=== PATIENT | male | born 1955 | race Hispanic/Latino ===

== ENCOUNTER 2022-06-23 15:19 | Inpatient (IN) | payer MEDICARE, OTHER ==
[~2022-06-23] VITALS: Ht 162.6 cm; Wt 39.3 kg
[2022-06-23 15:53] LABS: BASOPHILS % (AUTO) 0.2 % (0.0-5.0); CREATININE 1.1 mg/dL (0.5-1.5); EOSINOPHILS % (AUTO) 0.2 % (0.0-8.0); HEMATOCRIT 47.9 % (42-54); LYMPHOCYTES % (AUTO) 10.5 % (21.0-51.0); MEAN CORPUSCULAR HEMOGLOBIN 30.9 pg (27.0-33.0); MEAN CORPUSCULAR HGB CONC 34.7 g/dL (32.0-36.0); MONOCYTES % (AUTO) 6.1 % (3.0-13.0); NEUTROPHILS % (AUTO) 82.5 % (40.0-77.0); PLATELET COUNT (AUTO) 243 K/uL (130-400); POTASSIUM 3.7 mmol/L (3.5-5.1); RED BLOOD CELL COUNT(AUTO) 5.38 MIL/uL (4.50-6.20); RED CELL DISTRIBUTION WIDTH 12.9 % (11.0-15.5); WHITE BLOOD COUNT (AUTO) 12.1 K/uL (4.8-10.8)
[2022-06-23 15:58] LABS: ALBUMIN 3.6 g/dL (3.5-5.0); TOTAL PROTEIN, SERUM 7.7 g/dL (6.0-8.3)
[2022-06-23 16:28] LABS: INR 0.94 (0.85-1.15); PROTHROMBIN TIME 10.3 SEC (9.6-11.6)
[2022-06-23 16:29] LABS: PARTIAL THROMBOPLASTIN TIME 27.8 SEC (26.3-35.5)
[2022-06-23] MEDS ORDERED: ASPIRIN 81MG CHEW TAB PO ONE (16:30)
[2022-06-23 16:38] LABS: APPEARANCE,URINE CLEAR (CLEAR); BILIRUBIN,URINE NEGATIVE (NEGATIVE); COLOR,URINE LIGHT-YELLOW (YELLOW); GLUCOSE, URINE (UA) 30 mg/dL (NEGATIVE); KETONES,URINE NEGATIVE (NEGATIVE); LEUKOCYTE ESTERASE ,URINE NEGATIVE Leu/uL (NEGATIVE); NITRATE,URINE NEGATIVE (NEGATIVE); OCCULT BLOOD,URINE LARGE (NEGATIVE); PROTEIN,URINE NEGATIVE (NEGATIVE); UROBILINOGEN,URINE 0.2 mg/dL (0.2-1.0)
[2022-06-23] MEDS ORDERED: HEPARIN 25,000 UNITS/250ML D5W 250 ML IV ONE (16:38)
[2022-06-23] MEDS ORDERED: HEPARIN 5,000 UNIT VIAL ONE (16:38)
[2022-06-23 16:41] LABS: MUCUS,URINE RARE LPF (None Seen); RBC,URINE 0-1 /HPF (0-1); WBC,URINE 0-1 /HPF (0-1)
[2022-06-23] MEDS: HEPARIN 25,000 UNITS/250ML D5W 250 ML IV SCH (16:45)
[2022-06-23] MEDS ORDERED: CLOPIDOGREL 300MG TAB PO SCH (17:00)
[2022-06-23] MEDS ORDERED: MAG/ALUM/SIMETH 30 ML UDCUP PO PRN (17:00)
[2022-06-23] MEDS ORDERED: NITROGLYCERIN 0.4 MG SL TAB SL PRN (17:00)
[2022-06-23] MEDS ORDERED: LIDOCAINE HCL-MPF 1% 2ML VIAL IV PRN (17:00)
[2022-06-23] MEDS ORDERED: MAGNESIUM 2GM PREMIX 50ML 50 ML IV PRN (17:00)
[2022-06-23] MEDS ORDERED: ONDANSETRON 4MG INJ IV PRN (17:00)
[2022-06-23] MEDS ORDERED: GUAIFENESIN-DM 200/20 MG 10 ML PO PRN (17:00)
[2022-06-23] MEDS ORDERED: LACTULOSE 20 GM/30 ML UDCUP PO PRN (17:00)
[2022-06-23] MEDS ORDERED: DiphenhydrAMINE HCL 50 MG/ML VIAL IV PRN (17:00)
[2022-06-23] MEDS ORDERED: DIPHENHYDRAMINE HCL 25 MG CAPSULE PO PRN (17:00)
[2022-06-23] MEDS: ATORVASTATIN 40 MG TABLET PO SCH ×2 (17:13→19:54)
[2022-06-23] MEDS ORDERED: 0.9% NACL 500ML IV.SOLN 500 ML IV SCH (18:00)
[2022-06-23 19:15] VITALS: BP 130/61
[2022-06-23] MEDS: FAMOTIDINE 20MG TAB PO SCH (19:53)
[2022-06-23] MEDS: FAMOTIDINE 20MG VIAL IV SCH (19:54)
[2022-06-23 23:29] LABS: INR 0.96 (0.85-1.15); PROTHROMBIN TIME 10.5 SEC (9.6-11.6)
[2022-06-23 23:30] LABS: PARTIAL THROMBOPLASTIN TIME 87.7 SEC (26.3-35.5)
[2022-06-24] VITALS (15 sets, daily range): BP systolic 109–138; BP diastolic 53–95
[2022-06-24 06:42] LABS: CREATININE 0.9 mg/dL (0.5-1.5); MAGNESIUM 1.8 mg/dL (1.80-2.40); PHOSPHORUS 3.3 mg/dL (2.5-4.9); POTASSIUM 3.7 mmol/L (3.5-5.1)
[2022-06-24 06:50] LABS: BASOPHILS % (AUTO) 0.3 % (0.0-5.0); EOSINOPHILS % (AUTO) 0.7 % (0.0-8.0); HEMATOCRIT 46.4 % (42-54); LYMPHOCYTES % (AUTO) 27.1 % (21.0-51.0); MEAN CORPUSCULAR HEMOGLOBIN 30.6 pg (27.0-33.0); MEAN CORPUSCULAR HGB CONC 34.1 g/dL (32.0-36.0); MEAN CORPUSCULAR VOLUME 89.9 fL (79-99); MONOCYTES % (AUTO) 10.5 % (3.0-13.0); NEUTROPHILS % (AUTO) 61.1 % (40.0-77.0); PLATELET COUNT (AUTO) 217 K/uL (130-400); RED BLOOD CELL COUNT(AUTO) 5.16 MIL/uL (4.50-6.20); RED CELL DISTRIBUTION WIDTH 12.8 % (11.0-15.5); WHITE BLOOD COUNT (AUTO) 13.6 K/uL (4.8-10.8)
[2022-06-24] MEDS: ASPIRIN 81 MG EC TAB PO SCH (09:00)
[2022-06-24] MEDS: CLOPIDOGREL 75MG TAB PO SCH ×2 (09:00→11:44)
[2022-06-24] MEDS: FAMOTIDINE 20MG TAB PO SCH ×2 (09:00→20:25)
[2022-06-24] MEDS: FAMOTIDINE 20MG VIAL IV SCH ×2 (09:40→20:25)
[2022-06-24] MEDS: HEPARIN 25,000 UNITS/250ML D5W 250 ML IV SCH (11:27)
[2022-06-24] MEDS: KCL 20 MEQ ERTAB PO PRN (11:47)
[2022-06-24] MEDS ORDERED: LIDOCAINE HCL 1% 20 ML VIAL ONE (12:33)
[2022-06-24] MEDS ORDERED: NITROGLYCERIN 50MG VIAL ONE (12:34)
[2022-06-24] MEDS ORDERED: MIDAZOLAM HCL 1 MG/ML 2ML VIAL ONE (12:34)
[2022-06-24] MEDS ORDERED: HEPARIN 10,000 UNIT/10ML (1,000 UNIT/ML) VIAL ONE (12:34)
[2022-06-24] MEDS ORDERED: FENTANYL CITRATE PF 50 MCG/1 ML 2ML VIAL ONE (12:40)
[2022-06-24] MEDS ORDERED: ATROPINE 1MG SYG IVP ONE (13:07)
[2022-06-24] MEDS ORDERED: DOPAMINE HCL 400 MG/D5%-WATER 0 ML IV ONE (13:09)
[2022-06-24] MEDS ORDERED: SODIUM BICARB 50MEQ 50ML VIAL 0 ML ONE (13:50)
[2022-06-24] MEDS ORDERED: WATER IVP SCH (14:30)
[2022-06-24] MEDS ORDERED: DEXTROSE 5% IVP SCH (14:30)
[2022-06-24] MEDS ORDERED: SYRING IVP SCH (14:30)
[2022-06-24] MEDS ORDERED: SODIUM BICARB 8.4% IVP SCH (14:30)
[2022-06-24 17:35] LABS: HEMATOCRIT 45.7 % (42-54); MEAN CORPUSCULAR HEMOGLOBIN 30.9 pg (27.0-33.0); MEAN CORPUSCULAR HGB CONC 34.4 g/dL (32.0-36.0); RED BLOOD CELL COUNT(AUTO) 5.08 MIL/uL (4.50-6.20); RED CELL DISTRIBUTION WIDTH 12.7 % (11.0-15.5); WHITE BLOOD COUNT (AUTO) 11.9 K/uL (4.8-10.8)
[2022-06-24 17:41] LABS: ABG BASE EXCESS 1.7 mmol/L (-2.0-3.0); ABG HCO3 25.7 mmol/L (21.0-28.0); ABG OXYGEN SATURATION 95.6 % (95.0-99.0); ABG PCO2 39 mmHg (35-48)
[2022-06-24 18:11] LABS: CREATININE 0.9 mg/dL (0.5-1.5); POTASSIUM 3.9 mmol/L (3.5-5.1)
[2022-06-24] MEDS: ATORVASTATIN 40 MG TABLET PO SCH (20:25)
[2022-06-25] VITALS (35 sets, daily range): BP systolic 15–147; BP diastolic 51–101
[2022-06-25 01:31] LABS: APPEARANCE,URINE TURBID (CLEAR); BILIRUBIN,URINE NEGATIVE (NEGATIVE); COLOR,URINE DARK-BROWN (YELLOW); GLUCOSE, URINE (UA) NEGATIVE (NEGATIVE); KETONES,URINE NEGATIVE (NEGATIVE); LEUKOCYTE ESTERASE ,URINE NEGATIVE Leu/uL (NEGATIVE); NITRATE,URINE NEGATIVE (NEGATIVE); OCCULT BLOOD,URINE LARGE (NEGATIVE); PROTEIN,URINE 70 mg/dL (NEGATIVE); UROBILINOGEN,URINE 0.2 mg/dL (0.2-1.0)
[2022-06-25 01:33] LABS: BASOPHILS % (AUTO) 0.3 % (0.0-5.0); EOSINOPHILS % (AUTO) 0.7 % (0.0-8.0); HEMATOCRIT 46.1 % (42-54); LYMPHOCYTES % (AUTO) 24.3 % (21.0-51.0); MEAN CORPUSCULAR HEMOGLOBIN 31.3 pg (27.0-33.0); MEAN CORPUSCULAR HGB CONC 34.7 g/dL (32.0-36.0); MONOCYTES % (AUTO) 12.1 % (3.0-13.0); NEUTROPHILS % (AUTO) 62.2 % (40.0-77.0); PLATELET COUNT (AUTO) 213 K/uL (130-400); RED BLOOD CELL COUNT(AUTO) 5.12 MIL/uL (4.50-6.20); RED CELL DISTRIBUTION WIDTH 12.8 % (11.0-15.5); WHITE BLOOD COUNT (AUTO) 13.7 K/uL (4.8-10.8)
[2022-06-25 01:55] LABS: HEMOGLOBIN A1C 6.2 % (4.0-6.0)
[2022-06-25 02:03] LABS: B-TYPE NATRIURETIC PEPTIDE 293 pg/mL (0-100)
[2022-06-25 02:06] LABS: MYOGLOBIN 93 ng/mL (10-92)
[2022-06-25 02:27] LABS: CREATINE KINASE, TOTAL 1618 U/L (21-232)
[2022-06-25] MEDS ORDERED: CEFAZOLIN SODIUM 1 GM VIAL ONE (05:18)
[2022-06-25] MEDS ORDERED: PAPAVERINE HCL 30 MG/ML 2ML VIAL ONE (05:19)
[2022-06-25 05:46] LABS: CREATININE 0.9 mg/dL (0.5-1.5); POTASSIUM 4.1 mmol/L (3.5-5.1)
[2022-06-25 05:50] LABS: ALBUMIN 3.2 g/dL (3.5-5.0); TOTAL PROTEIN, SERUM 7.1 g/dL (6.0-8.3)
[2022-06-25 05:54] LABS: INR 0.94 (0.85-1.15); PROTHROMBIN TIME 10.3 SEC (9.6-11.6)
[2022-06-25 05:55] LABS: PARTIAL THROMBOPLASTIN TIME 27.3 SEC (26.3-35.5)
[2022-06-25] MEDS ORDERED: NOREPINEPHRINE BITARTRATE 8 MG in 0.9% NACL 250ML 250 ML IV PRN (07:00)
[2022-06-25] MEDS ORDERED: EPINEPHRINE PF 1MG (1:1,000) 10 MG in 0.9% NACL 250ML 240 ML IV PRN ×2 (07:00→11:00)
[2022-06-25] MEDS ORDERED: AMINOCAPROIC ACID 5,000MG VIAL 15,000 MG in 0.9% NACL 500ML IV.SOLN 420 ML IV PRN (07:00)
[2022-06-25] MEDS ORDERED: METOPROLOL TARTRATE 25 MG TAB ONE (07:28)
[2022-06-25] MEDS ORDERED: HEPARIN 10,000 UNIT/10ML (1,000 UNIT/ML) VIAL ONE ×2 (07:59→08:31)
[2022-06-25] MEDS ORDERED: NITROGLYCERIN 50MG/D5W 250ML 1 BOT ONE (08:18)
[2022-06-25] MEDS ORDERED: EPINEPHRINE PF 1MG (1:1,000) 1 MG/ML AMP ONE (08:31)
[2022-06-25] MEDS ORDERED: FENTANYL CITRATE PF 50 MCG/1 ML 20ML VIAL IJ ONE (08:31)
[2022-06-25] MEDS ORDERED: PROTAMINE SULFATE 10 MG/ML 25ML VIAL IV ONE (08:31)
[2022-06-25] MEDS ORDERED: PROPOFOL 10 MG/ML 20ML VIAL IV ONE (08:31)
[2022-06-25] MEDS ORDERED: AMINOCAPROIC ACID 5,000MG VIAL ONE (08:31)
[2022-06-25] MEDS ORDERED: ESMOLOL HCL 10 MG/ML 10 ML VIAL ONE ×2 (08:31→09:08)
[2022-06-25] MEDS ORDERED: NOREPINEPHRINE BITARTRATE 1 MG/1 ML ML IV ONE ×2 (08:31→11:43)
[2022-06-25] MEDS ORDERED: LIDOCAINE PF 100MG/5ML (2%) SYRINGE 5ML ONE ×2 (08:31→08:33)
[2022-06-25] MEDS ORDERED: ROCURONIUM 10MG/1ML SYR 10 MG/ML ML ONE ×2 (08:32→10:45)
[2022-06-25] MEDS ORDERED: MIDAZOLAM HCL 1 MG/ML 2ML VIAL ONE (08:32)
[2022-06-25] MEDS ORDERED: ETOMIDATE 20MG VIAL ONE (08:33)
[2022-06-25] MEDS: ASPIRIN 81 MG EC TAB PO SCH (09:00)
[2022-06-25] MEDS ORDERED: METOPROLOL TARTRATE 25 MG TAB PO SCH (09:00)
[2022-06-25] MEDS ORDERED: VASOPRESSIN 20 UNITS/ML 1ML VIAL ONE (09:02)
[2022-06-25] MEDS ORDERED: AMIODARONE 150MG VIAL ONE (09:02)
[2022-06-25 09:28] LABS: ABG BASE EXCESS -3.8 mmol/L (-2.0-3.0); ABG HCO3 22.2 mmol/L (21.0-28.0); ABG OXYGEN SATURATION 99.9 % (95.0-99.0); ABG PCO2 44 mmHg (35-48)
[2022-06-25] MEDS ORDERED: SODIUM BICARB 50MEQ 50ML VIAL 200 ML ONE (09:38)
[2022-06-25] MEDS ORDERED: CEFAZOLIN SODIUM 1 GM VIAL IVP ONE ×2 (10:00)
[2022-06-25] MEDS ORDERED: PAPAVERINE HCL 30 MG/ML 2ML VIAL IRRIG ONE ×2 (10:00)
[2022-06-25] MEDS ORDERED: SODIUM BICARB 50MEQ 50ML VIAL 250 ML ONE (10:04)
[2022-06-25 10:24] LABS: ABG BASE EXCESS 5.8 mmol/L (-2.0-3.0); ABG HCO3 29.7 mmol/L (21.0-28.0); ABG OXYGEN SATURATION 99.8 % (95.0-99.0); ABG PCO2 40 mmHg (35-48)
[2022-06-25 10:59] LABS: ABG BASE EXCESS 0.8 mmol/L (-2.0-3.0); ABG HCO3 23.7 mmol/L (21.0-28.0); ABG OXYGEN SATURATION 99.6 % (95.0-99.0); ABG PCO2 33 mmHg (35-48)
[2022-06-25] MEDS ORDERED: GLUCAGON 1MG KIT 1 MG ML IM PRN (11:00)
[2022-06-25] MEDS ORDERED: 0.9%NACL 10ML VIAL IVP PRN (11:00)
[2022-06-25] MEDS ORDERED: AMINOCAPROIC ACID 5,000MG VIAL 15,000 MG in 0.9% NACL 250ML 250 ML IV SCH (11:00)
[2022-06-25] MEDS ORDERED: CEFAZOLIN SODIUM 1 GM VIAL IVP SCH (11:00)
[2022-06-25] MEDS ORDERED: PROPOFOL 1000 MG/100 ML 100 ML IV PRN (11:00)
[2022-06-25] MEDS ORDERED: 0.9%NACL 1000ML 1,000 ML IV SCH (11:00)
[2022-06-25] MEDS ORDERED: NOREPINEPHRIN 4MG/NS 250ML 250 ML IV PRN (11:00)
[2022-06-25] MEDS ORDERED: INSULIN REGULAR, HUMAN 3ML 100 UNIT in 0.9%NACL 100ML 99 ML IV SCH ×2 (11:00)
[2022-06-25] MEDS ORDERED: ONDANSETRON 4MG INJ IV PRN (11:00)
[2022-06-25] MEDS ORDERED: MORPHINE 2 MG SYG IV PRN (11:00)
[2022-06-25] MEDS ORDERED: POTASSIUM PHOS 15 mMOL+NS250ML 250 ML IV PRN (11:00)
[2022-06-25] MEDS ORDERED: 0.9% NACL 500ML IV.SOLN 500 ML IV SCH (11:00)
[2022-06-25] MEDS ORDERED: ACETAMINOPHEN 325 MG TAB PO PRN (11:00)
[2022-06-25] MEDS ORDERED: DEXTROSE 50%-WATER 50 ML DISP.SYRIN IV PRN (11:00)
[2022-06-25] MEDS ORDERED: NITROGLYCERIN 50MG/D5W 250ML 250 BOT IV SCH (11:00)
[2022-06-25] MEDS ORDERED: POTASSIUM CHLORIDE 20MEQ/100ML 100 ML IV PRN (11:00)
[2022-06-25 11:16] LABS: ABG BASE EXCESS -0.6 mmol/L (-2.0-3.0); ABG HCO3 23.6 mmol/L (21.0-28.0); ABG OXYGEN SATURATION 99.6 % (95.0-99.0); ABG PCO2 37 mmHg (35-48)
[2022-06-25] MEDS ORDERED: ASPIRIN 81MG CHEW TAB NG ONE (12:00)
[2022-06-25 12:06] LABS: ABG BASE EXCESS -4.3 mmol/L (-2.0-3.0); ABG HCO3 19.6 mmol/L (21.0-28.0); ABG OXYGEN SATURATION 99.2 % (95.0-99.0); ABG PCO2 32 mmHg (35-48)
[2022-06-25 12:59] LABS: ABG BASE EXCESS -1.1 mmol/L (-2.0-3.0); ABG HCO3 22.5 mmol/L (21.0-28.0); ABG OXYGEN SATURATION 96.1 % (95.0-99.0); ABG PCO2 33 mmHg (35-48)
[2022-06-25 13:02] LABS: HEMATOCRIT 24.8 % (42-54); MEAN CORPUSCULAR HEMOGLOBIN 31.4 pg (27.0-33.0); MEAN CORPUSCULAR HGB CONC 34.7 g/dL (32.0-36.0); MEAN CORPUSCULAR VOLUME 90.5 fL (79-99); RED BLOOD CELL COUNT(AUTO) 2.74 MIL/uL (4.50-6.20); RED CELL DISTRIBUTION WIDTH 12.8 % (11.0-15.5); WHITE BLOOD COUNT (AUTO) 28.7 K/uL (4.8-10.8)
[2022-06-25 13:14] LABS: CREATININE 1.1 mg/dL (0.5-1.5); INR 1.32 (0.85-1.15); MAGNESIUM 1.4 mg/dL (1.80-2.40); PHOSPHORUS 3.7 mg/dL (2.5-4.9); POTASSIUM 3.4 mmol/L (3.5-5.1); PROTHROMBIN TIME 14.2 SEC (9.6-11.6)
[2022-06-25 13:15] LABS: PARTIAL THROMBOPLASTIN TIME 30.5 SEC (26.3-35.5)
[2022-06-25 13:32] LABS: ABG BASE EXCESS 2.1 mmol/L (-2.0-3.0); ABG HCO3 26.8 mmol/L (21.0-28.0); ABG OXYGEN SATURATION 96.4 % (95.0-99.0); ABG PCO2 42 mmHg (35-48)
[2022-06-25] MEDS: ALBUMIN (HUMAN) 5% 250 ML IV PRN ×2 (13:32→13:35)
[2022-06-25] MEDS: SODIUM BICARB 50MEQ 50ML VIAL IV PRN ×5 (13:32→17:25)
[2022-06-25] MEDS: MAGNESIUM 2GM PREMIX 50ML 50 ML IV PRN ×2 (13:34→14:50)
[2022-06-25] MEDS: MORPHINE 4 MG SYG IV PRN ×2 (13:34→18:29)
[2022-06-25] MEDS: POTASSIUM CHLORIDE 20MEQ/100ML 100 ML IV PRN ×6 (13:34→21:15)
[2022-06-25 14:37] LABS: ABG BASE EXCESS -0.8 mmol/L (-2.0-3.0); ABG HCO3 23.9 mmol/L (21.0-28.0); ABG OXYGEN SATURATION 98.4 % (95.0-99.0); ABG PCO2 39 mmHg (35-48)
[2022-06-25 14:40] LABS: ABG OXYGEN SATURATION 55.5 % (95.0-99.0); BASE EXCESS,VENOUS BLOOD GAS -1.7 (-2.0-3.0); HCO3,VENOUS BLOOD GAS 23.6 (21.0-28.0); PCO2,VENOUS BLOOD GAS 43 (35-48); PH,VENOUS BLOOD GAS 7.362 (7.350-7.450)
[2022-06-25] MEDS: CALCIUM GLUC 1GM 1 GM in 0.9%NACL 50ML 50 ML IV PRN ×5 (15:03→21:16)
[2022-06-25] MEDS ORDERED: DEXMEDETOMIDINE 400MCG/NS100ML IV ONE ×2 (15:13→22:05)
[2022-06-25 15:22] LABS: ABG HCO3 24.1 mmol/L (21.0-28.0); ABG OXYGEN SATURATION 95.1 % (95.0-99.0); ABG PCO2 41 mmHg (35-48)
[2022-06-25] MEDS: ACETAMINOPHEN 325 MG TAB PO PRN (16:04)
[2022-06-25 16:21] LABS: ABG BASE EXCESS -3.6 mmol/L (-2.0-3.0); ABG HCO3 21.9 mmol/L (21.0-28.0); ABG OXYGEN SATURATION 75.4 % (95.0-99.0); ABG PCO2 42 mmHg (35-48)
[2022-06-25 16:54] LABS: ABG BASE EXCESS 0.9 mmol/L (-2.0-3.0); ABG HCO3 27.6 mmol/L (21.0-28.0); ABG OXYGEN SATURATION 97.4 % (95.0-99.0); ABG PCO2 57 mmHg (35-48)
[2022-06-25] MEDS ORDERED: FENTANYL 2500MCG+NS 250ML IV.SOLN IV SCH (17:00)
[2022-06-25 17:24] LABS: HEMATOCRIT 22.8 % (42-54); MEAN CORPUSCULAR HEMOGLOBIN 31.3 pg (27.0-33.0); MEAN CORPUSCULAR HGB CONC 34.6 g/dL (32.0-36.0); MEAN CORPUSCULAR VOLUME 90.5 fL (79-99); RED BLOOD CELL COUNT(AUTO) 2.52 MIL/uL (4.50-6.20); RED CELL DISTRIBUTION WIDTH 13.2 % (11.0-15.5); WHITE BLOOD COUNT (AUTO) 16.9 K/uL (4.8-10.8)
[2022-06-25 17:29] LABS: INR 1.29 (0.85-1.15); PROTHROMBIN TIME 13.9 SEC (9.6-11.6)
[2022-06-25] MEDS: CEFAZOLIN SODIUM 1 GM VIAL IV SCH (17:29)
[2022-06-25] MEDS ORDERED: IPRATROPIUM 0.5 MG/2.5 ML INH IH ONE ×2 (17:30→17:35)
[2022-06-25] MEDS ORDERED: IPRATROPIUM 0.5 MG/2.5 ML INH IH PRN (17:30)
[2022-06-25 17:31] LABS: CREATININE 1.5 mg/dL (0.5-1.5); PARTIAL THROMBOPLASTIN TIME 33.1 SEC (26.3-35.5)
[2022-06-25 17:34] LABS: MAGNESIUM 2.5 mg/dL (1.80-2.40); TOTAL PROTEIN, SERUM 4.5 g/dL (6.0-8.3)
[2022-06-25 17:59] LABS: ABG BASE EXCESS 0.9 mmol/L (-2.0-3.0); ABG HCO3 24.6 mmol/L (21.0-28.0); ABG OXYGEN SATURATION 98.5 % (95.0-99.0); ABG PCO2 36 mmHg (35-48)
[2022-06-25] MEDS ORDERED: LACTATED RINGERS 1000ML 1,000 ML IV ONE (18:57)
[2022-06-25 19:17] LABS: ABG BASE EXCESS 4.5 mmol/L (-2.0-3.0); ABG HCO3 27.8 mmol/L (21.0-28.0); ABG OXYGEN SATURATION 97.1 % (95.0-99.0); ABG PCO2 36 mmHg (35-48)
[2022-06-25] MEDS: FAMOTIDINE 20MG VIAL IV SCH (20:01)
[2022-06-25] MEDS: ACETAMINOPHEN 650 MG SUPPOSITORY RC PRN ×2 (20:02→22:14)
[2022-06-25] MEDS ORDERED: METOPROLOL TARTRATE 25 MG TAB PO ONE (21:00)
[2022-06-25 21:07] LABS: ABG BASE EXCESS 4.9 mmol/L (-2.0-3.0); ABG HCO3 27.3 mmol/L (21.0-28.0); ABG OXYGEN SATURATION 98.3 % (95.0-99.0); ABG PCO2 32 mmHg (35-48)
[2022-06-25] MEDS: ATORVASTATIN 40 MG TABLET PO SCH (22:14)
[2022-06-25] MEDS: VASOPRESSIN 40 UNITS in 0.9%NACL 50ML 40 ML IV SCH (22:17)
[2022-06-25] MEDS ORDERED: NOREPINEPHRIN 8MG/250ML NS PMX 250 ML IV ONE (22:39)
[2022-06-25] MEDS ORDERED: ALBUMIN (HUMAN) 5% 500 ML IV ONE (23:15)
[2022-06-26] VITALS (75 sets, daily range): BP systolic 78–141; BP diastolic 52–76
[2022-06-26] MEDS: CEFAZOLIN SODIUM 1 GM VIAL IV SCH ×2 (00:11→07:48)
[2022-06-26 00:15] LABS: ABG BASE EXCESS 3.4 mmol/L (-2.0-3.0); ABG OXYGEN SATURATION 96.6 % (95.0-99.0); ABG PCO2 36 mmHg (35-48)
[2022-06-26] MEDS: CALCIUM GLUC 1GM 1 GM in 0.9%NACL 50ML 50 ML IV PRN ×5 (00:23→21:43)
[2022-06-26] MEDS: POTASSIUM CHLORIDE 20MEQ/100ML 100 ML IV PRN ×5 (00:23→21:16)
[2022-06-26] MEDS ORDERED: DEXMEDETOMIDINE 400MCG/NS100ML IV ONE ×2 (01:53→06:25)
[2022-06-26 02:28] LABS: ABG BASE EXCESS 1.5 mmol/L (-2.0-3.0); ABG HCO3 25.6 mmol/L (21.0-28.0); ABG OXYGEN SATURATION 95.2 % (95.0-99.0); ABG PCO2 38 mmHg (35-48)
[2022-06-26 04:04] LABS: ABG BASE EXCESS -0.8 mmol/L (-2.0-3.0); ABG HCO3 23.4 mmol/L (21.0-28.0); ABG PCO2 37 mmHg (35-48)
[2022-06-26] MEDS: SODIUM BICARB 50MEQ 50ML VIAL IV PRN (04:13)
[2022-06-26 05:46] LABS: CREATININE 1.2 mg/dL (0.5-1.5); MAGNESIUM 1.8 mg/dL (1.80-2.40); PHOSPHORUS 3.1 mg/dL (2.5-4.9); POTASSIUM 4.3 mmol/L (3.5-5.1)
[2022-06-26 05:47] LABS: INR 1.17 (0.85-1.15); PROTHROMBIN TIME 12.6 SEC (9.6-11.6)
[2022-06-26 05:48] LABS: PARTIAL THROMBOPLASTIN TIME 33.6 SEC (26.3-35.5)
[2022-06-26 05:53] LABS: BASOPHILS % (AUTO) 0.2 % (0.0-5.0); EOSINOPHILS % (AUTO) 0.5 % (0.0-8.0); MEAN CORPUSCULAR HEMOGLOBIN 30.2 pg (27.0-33.0); MEAN CORPUSCULAR HGB CONC 34.3 g/dL (32.0-36.0); MEAN CORPUSCULAR VOLUME 88.1 fL (79-99); MONOCYTES % (AUTO) 14.5 % (3.0-13.0); NEUTROPHILS % (AUTO) 67.4 % (40.0-77.0); PLATELET COUNT (AUTO) 153 K/uL (130-400); RED BLOOD CELL COUNT(AUTO) 2.35 MIL/uL (4.50-6.20); RED CELL DISTRIBUTION WIDTH 14.3 % (11.0-15.5); WHITE BLOOD COUNT (AUTO) 13.2 K/uL (4.8-10.8)
[2022-06-26 05:56] LABS: HEMATOCRIT 20.7 % (42-54)
[2022-06-26] MEDS: MAGNESIUM 2GM PREMIX 50ML 50 ML IV PRN (06:44)
[2022-06-26] MEDS ORDERED: MAGNESIUM 2GM PREMIX 50ML 50 ML IV SCH (07:00)
[2022-06-26 07:03] LABS: ABG BASE EXCESS 2.4 mmol/L (-2.0-3.0); ABG HCO3 26.7 mmol/L (21.0-28.0); ABG OXYGEN SATURATION 95.1 % (95.0-99.0); ABG PCO2 40 mmHg (35-48)
[2022-06-26] MEDS: ASPIRIN 81 MG EC TAB PO SCH (07:48)
[2022-06-26] MEDS: FAMOTIDINE 20MG VIAL IV SCH ×2 (07:48→20:26)
[2022-06-26] MEDS: VASOPRESSIN 40 UNITS in 0.9%NACL 50ML 40 ML IV SCH ×2 (08:20→19:34)
[2022-06-26 08:53] LABS: ABG BASE EXCESS 2.6 mmol/L (-2.0-3.0); ABG HCO3 26.5 mmol/L (21.0-28.0); ABG OXYGEN SATURATION 94.7 % (95.0-99.0); ABG PCO2 38 mmHg (35-48)
[2022-06-26] MEDS ORDERED: PHARMACY COMMUNICATION MISC SCH ×3 (09:30→21:30)
[2022-06-26] MEDS ORDERED: SODIUM BICARB 50MEQ 50ML VIAL 25 MEQ in DEXTROSE 5%-WATER 1,000 ML IV SCH (10:00)
[2022-06-26] MEDS: LACTATED RINGERS 1000ML 1,000 ML IV SCH ×2 (10:07→22:59)
[2022-06-26] MEDS: DEXMEDETOMIDINE 400MCG/NS100ML IV SCH ×2 (10:45→19:33)
[2022-06-26] MEDS ORDERED: DEXMEDETOMIDINE HCL 400 MCG in 0.9%NACL 100ML 100 ML IV SCH (11:00)
[2022-06-26] MEDS: ACETAMINOPHEN 325 MG TAB PO PRN ×2 (11:05→20:27)
[2022-06-26 13:06] LABS: ABG BASE EXCESS 0.9 mmol/L (-2.0-3.0); ABG OXYGEN SATURATION 96.2 % (95.0-99.0); ABG PCO2 37 mmHg (35-48)
[2022-06-26] MEDS: ZOSYN 3.375GM +NS 50ML IV SCH ×2 (14:13→22:01)
[2022-06-26 14:19] LABS: ABG HCO3 27.6 mmol/L (21.0-28.0); ABG OXYGEN SATURATION 96.3 % (95.0-99.0); ABG PCO2 43 mmHg (35-48)
[2022-06-26 15:27] LABS: ABG BASE EXCESS 3.1 mmol/L (-2.0-3.0); ABG PCO2 45 mmHg (35-48)
[2022-06-26] MEDS: ATORVASTATIN 40 MG TABLET PO SCH (20:27)
[2022-06-26 21:01] LABS: ABG BASE EXCESS 2.4 mmol/L (-2.0-3.0); ABG OXYGEN SATURATION 96.3 % (95.0-99.0); ABG PCO2 42 mmHg (35-48)
[2022-06-26] MEDS ORDERED: 0.9%NACL 50ML 50 ML IV ONE (21:07)
[2022-06-26] MEDS ORDERED: CALCIUM GLUC 1GM/10ML VIAL ONE (21:42)
[2022-06-26] MEDS: TRAMADOL HCL 50 MG TABLET PO PRN (23:53)
[2022-06-27] VITALS (48 sets, daily range): BP systolic 97–294; BP diastolic 37–293
[2022-06-27] MEDS ORDERED: ACETAMINOPHEN 325 MG/10.15ML UDCUP ONE (02:03)
[2022-06-27 04:32] LABS: ABG BASE EXCESS 1.2 mmol/L (-2.0-3.0); ABG HCO3 25.7 mmol/L (21.0-28.0); ABG OXYGEN SATURATION 97.9 % (95.0-99.0); ABG PCO2 41 mmHg (35-48)
[2022-06-27 04:47] LABS: MEAN CORPUSCULAR HEMOGLOBIN 30.5 pg (27.0-33.0); MEAN CORPUSCULAR HGB CONC 33.5 g/dL (32.0-36.0); RED BLOOD CELL COUNT(AUTO) 2.1 MIL/uL (4.50-6.20); WHITE BLOOD COUNT (AUTO) 18.8 K/uL (4.8-10.8)
[2022-06-27 04:54] LABS: HEMATOCRIT 19.1 % (42-54)
[2022-06-27 04:57] LABS: CREATININE 1.1 mg/dL (0.5-1.5); POTASSIUM 4.2 mmol/L (3.5-5.1)
[2022-06-27 05:21] LABS: INR 1.19 (0.85-1.15); PROTHROMBIN TIME 12.8 SEC (9.6-11.6)
[2022-06-27 05:22] LABS: PARTIAL THROMBOPLASTIN TIME 32.2 SEC (26.3-35.5)
[2022-06-27] MEDS: ZOSYN 3.375GM +NS 50ML IV SCH ×3 (05:46→21:35)
[2022-06-27] MEDS: INSULIN HUMULIN R 100 UNIT/ML 3ML SQ SCH ×4 (06:18→19:57)
[2022-06-27] MEDS: DEXMEDETOMIDINE 400MCG/NS100ML IV SCH (06:38)
[2022-06-27] MEDS: FAMOTIDINE 20MG VIAL IV SCH ×2 (08:38→20:09)
[2022-06-27] MEDS: ASPIRIN 81 MG EC TAB PO SCH (08:38)
[2022-06-27] MEDS ORDERED: FUROSEMIDE 40MG VIAL IV SCH (11:40)
[2022-06-27] MEDS: TRAMADOL HCL 50 MG TABLET PO PRN (11:53)
[2022-06-27 14:51] LABS: POTASSIUM 3.5 mmol/L (3.5-5.1)
[2022-06-27] MEDS: POTASSIUM CHLORIDE 20MEQ/100ML 100 ML IV PRN ×3 (16:25→20:10)
[2022-06-27] MEDS ORDERED: ARTIFICAL TEARS SOL 15 ML ONE (16:43)
[2022-06-27] MEDS ORDERED: ARTIFICAL TEARS SOL 15 ML OU PRN (17:00)
[2022-06-27] MEDS: ATORVASTATIN 40 MG TABLET PO SCH (20:09)
[2022-06-27] MEDS: FUROSEMIDE 20 MG TABLET PO SCH (20:09)
[2022-06-27] MEDS: ACETAMINOPHEN 325 MG TAB PO PRN (20:12)
[2022-06-28] VITALS (21 sets, daily range): BP systolic 97–142; BP diastolic 48–77
[2022-06-28] MEDS: LACTATED RINGERS 1000ML 1,000 ML IV SCH (01:42)
[2022-06-28] MEDS: TRAMADOL HCL 50 MG TABLET PO PRN ×3 (03:49→20:01)
[2022-06-28 05:11] LABS: HEMATOCRIT 25.7 % (42-54); MEAN CORPUSCULAR HEMOGLOBIN 30.6 pg (27.0-33.0); MEAN CORPUSCULAR HGB CONC 33.9 g/dL (32.0-36.0); MEAN CORPUSCULAR VOLUME 90.5 fL (79-99); NUCLEATED RED BLOOD CELLS 0.1 % (0.0-0.19); RED BLOOD CELL COUNT(AUTO) 2.84 MIL/uL (4.50-6.20); RED CELL DISTRIBUTION WIDTH 14.4 % (11.0-15.5); WHITE BLOOD COUNT (AUTO) 19.4 K/uL (4.8-10.8)
[2022-06-28] MEDS: ZOSYN 3.375GM +NS 50ML IV SCH ×3 (05:14→22:29)
[2022-06-28 05:27] LABS: CREATININE 1.1 mg/dL (0.5-1.5); MAGNESIUM 2.1 mg/dL (1.80-2.40); POTASSIUM 3.8 mmol/L (3.5-5.1)
[2022-06-28] MEDS: INSULIN HUMULIN R 100 UNIT/ML 3ML SQ SCH ×4 (05:53→20:56)
[2022-06-28] MEDS ORDERED: CALCIUM GLUC 1GM/10ML VIAL ONE (09:18)
[2022-06-28] MEDS: FAMOTIDINE 20MG VIAL IV SCH ×2 (09:34→20:01)
[2022-06-28] MEDS: CALCIUM GLUC 1GM 1 GM in 0.9%NACL 50ML 50 ML IV PRN (09:34)
[2022-06-28] MEDS: ASPIRIN 81 MG EC TAB PO SCH (09:35)
[2022-06-28] MEDS: FUROSEMIDE 20 MG TABLET PO SCH ×2 (09:35→20:00)
[2022-06-28] MEDS: POTASSIUM CHLORIDE 20MEQ/100ML 100 ML IV PRN (09:36)
[2022-06-28] MEDS: ATORVASTATIN 40 MG TABLET PO SCH (20:00)
[2022-06-29] VITALS (23 sets, daily range): BP systolic 103–151; BP diastolic 50–86
[2022-06-29] MEDS: ZOSYN 3.375GM +NS 50ML IV SCH ×3 (05:00→20:59)
[2022-06-29] MEDS: TRAMADOL HCL 50 MG TABLET PO PRN ×2 (05:01→09:54)
[2022-06-29 05:42] LABS: BASOPHILS % (AUTO) 0.1 % (0.0-5.0); EOSINOPHILS % (AUTO) 1.1 % (0.0-8.0); HEMATOCRIT 27.6 % (42-54); LYMPHOCYTES % (AUTO) 10.4 % (21.0-51.0); MEAN CORPUSCULAR HEMOGLOBIN 30.6 pg (27.0-33.0); MEAN CORPUSCULAR HGB CONC 33.3 g/dL (32.0-36.0); MEAN CORPUSCULAR VOLUME 91.7 fL (79-99); NEUTROPHILS % (AUTO) 75.6 % (40.0-77.0); NUCLEATED RED BLOOD CELLS 0.4 % (0.0-0.19); PLATELET COUNT (AUTO) 120 K/uL (130-400); RED BLOOD CELL COUNT(AUTO) 3.01 MIL/uL (4.50-6.20); RED CELL DISTRIBUTION WIDTH 14.2 % (11.0-15.5); WHITE BLOOD COUNT (AUTO) 16.4 K/uL (4.8-10.8)
[2022-06-29 05:51] LABS: POTASSIUM 3.3 mmol/L (3.5-5.1)
[2022-06-29] MEDS: POTASSIUM CHLORIDE 20MEQ/100ML 100 ML IV PRN (05:57)
[2022-06-29] MEDS: INSULIN HUMULIN R 100 UNIT/ML 3ML SQ SCH ×4 (06:41→21:00)
[2022-06-29] MEDS: FAMOTIDINE 20MG VIAL IV SCH ×2 (09:50→20:59)
[2022-06-29] MEDS: FUROSEMIDE 20 MG TABLET PO SCH ×2 (09:50→20:58)
[2022-06-29] MEDS: ASPIRIN 81 MG EC TAB PO SCH (09:50)
[2022-06-29] MEDS: ENOXAPARIN SODIUM 30 MG/0.3 ML SQ SCH (09:51)
[2022-06-29] MEDS ORDERED: ALPRAZOLAM 0.25 MG TABLET PO PRN (13:30)
[2022-06-29] MEDS: METOPROLOL TARTRATE 25 MG TAB PO SCH ×2 (14:49→20:58)
[2022-06-29] MEDS: ATORVASTATIN 40 MG TABLET PO SCH (20:58)
[2022-06-30 00:18] VITALS: BP 134/76
[2022-06-30 03:18] VITALS: BP 138/78
[2022-06-30 04:48] LABS: HEMATOCRIT 30.3 % (42-54); MEAN CORPUSCULAR HEMOGLOBIN 30.1 pg (27.0-33.0); MEAN CORPUSCULAR HGB CONC 32.7 g/dL (32.0-36.0); MEAN CORPUSCULAR VOLUME 92.1 fL (79-99); NUCLEATED RED BLOOD CELLS 0.3 % (0.0-0.19); RED BLOOD CELL COUNT(AUTO) 3.29 MIL/uL (4.50-6.20); WHITE BLOOD COUNT (AUTO) 17.9 K/uL (4.8-10.8)
[2022-06-30 04:56] LABS: POTASSIUM 3.4 mmol/L (3.5-5.1)
[2022-06-30] MEDS: ZOSYN 3.375GM +NS 50ML IV SCH ×3 (05:48→22:19)
[2022-06-30] MEDS: KCL 20 MEQ ERTAB PO PRN ×2 (05:50→08:31)
[2022-06-30] MEDS: INSULIN HUMULIN R 100 UNIT/ML 3ML SQ SCH ×4 (05:51→21:00)
[2022-06-30 08:00] VITALS: BP 124/83
[2022-06-30] MEDS: METOPROLOL TARTRATE 25 MG TAB PO SCH ×2 (08:30→22:17)
[2022-06-30] MEDS: ASPIRIN 81 MG EC TAB PO SCH (08:31)
[2022-06-30] MEDS: ENOXAPARIN SODIUM 30 MG/0.3 ML SQ SCH (08:31)
[2022-06-30] MEDS: FUROSEMIDE 20 MG TABLET PO SCH ×2 (08:31→22:18)
[2022-06-30] MEDS: FAMOTIDINE 20MG TAB PO SCH ×2 (08:31→22:18)
[2022-06-30 11:16] VITALS: BP 110/68
[2022-06-30] MEDS ORDERED: LORAZEPAM 1 MG TABLET PO PRN (17:00)
[2022-06-30 19:41] VITALS: BP 100/62
[2022-06-30] MEDS ORDERED: RISPERIDONE 1 MG TABLET PO SCH (21:00)
[2022-06-30] MEDS: ATORVASTATIN 40 MG TABLET PO SCH (22:17)
[2022-06-30] MEDS: ACETAMINOPHEN 325 MG TAB PO PRN (22:23)
[2022-06-30 23:37] VITALS: BP 119/62
[2022-07-01] MEDS: ACETAMINOPHEN 325 MG TAB PO PRN (04:01)
[2022-07-01 04:36] LABS: BASOPHILS % (AUTO) 0.2 % (0.0-5.0); EOSINOPHILS % (AUTO) 1.7 % (0.0-8.0); HEMATOCRIT 27.8 % (42-54); LYMPHOCYTES % (AUTO) 16.5 % (21.0-51.0); MEAN CORPUSCULAR HEMOGLOBIN 30.6 pg (27.0-33.0); MEAN CORPUSCULAR HGB CONC 32.7 g/dL (32.0-36.0); MEAN CORPUSCULAR VOLUME 93.6 fL (79-99); NEUTROPHILS % (AUTO) 65.1 % (40.0-77.0); NUCLEATED RED BLOOD CELLS 0.4 % (0.0-0.19); PLATELET COUNT (AUTO) 206 K/uL (130-400); RED BLOOD CELL COUNT(AUTO) 2.97 MIL/uL (4.50-6.20); RED CELL DISTRIBUTION WIDTH 13.8 % (11.0-15.5); WHITE BLOOD COUNT (AUTO) 16.2 K/uL (4.8-10.8)
[2022-07-01 04:45] VITALS: BP 91/52
[2022-07-01 05:17] LABS: B-TYPE NATRIURETIC PEPTIDE 965 pg/mL (0-100)
[2022-07-01] MEDS: ZOSYN 3.375GM +NS 50ML IV SCH ×3 (05:25→21:27)
[2022-07-01 05:30] LABS: CREATININE 1.1 mg/dL (0.5-1.5); MAGNESIUM 2.3 mg/dL (1.80-2.40)
[2022-07-01 06:00] LABS: POTASSIUM 2.9 mmol/L (3.5-5.1)
[2022-07-01] MEDS ORDERED: RIVASTIGMINE 4.6MG/24HR PATCH TD SCH (06:00)
[2022-07-01] MEDS: POTASSIUM CHLORIDE 20MEQ/100ML 100 ML IV PRN (06:20)
[2022-07-01] MEDS: KCL 20 MEQ ERTAB PO PRN (06:25)
[2022-07-01] MEDS: INSULIN HUMULIN R 100 UNIT/ML 3ML SQ SCH ×4 (07:20→21:00)
[2022-07-01] MEDS: METOPROLOL TARTRATE 25 MG TAB PO SCH ×2 (08:07→21:26)
[2022-07-01] MEDS: ASPIRIN 81 MG EC TAB PO SCH (08:07)
[2022-07-01] MEDS: FUROSEMIDE 20 MG TABLET PO SCH ×2 (08:08→21:00)
[2022-07-01] MEDS: FAMOTIDINE 20MG TAB PO SCH ×2 (08:08→21:27)
[2022-07-01] MEDS: ENOXAPARIN SODIUM 30 MG/0.3 ML SQ SCH (08:10)
[2022-07-01] MEDS: POTASSIUM CHLORIDE 10% ELIXIR 20 MEQ/15 ML UDCUP PO PRN (08:11)
[2022-07-01 08:30] VITALS: BP 108/59
[2022-07-01] MEDS ORDERED: FUROSEMIDE 40MG VIAL IV SCH (09:00)
[2022-07-01] MEDS: RISPERIDONE 0.5 MG TABLET PO SCH (09:00)
[2022-07-01] MEDS ORDERED: VANCOMYCIN PROTOCOL PER PHARMACY IV SCH (11:00)
[2022-07-01] MEDS ORDERED: VANCOMYCIN 1G VIAL IVPB SCH (11:00)
[2022-07-01] MEDS: VANCOMYCIN 1.25 GM/250 ML BAG 250 ML IV SCH ×3 (11:14→21:19)
[2022-07-01] MEDS ORDERED: COMPOUND IV REFRIGERATED 1 EACH IVSOLN MISC PRN (11:30)
[2022-07-01 12:23] VITALS: BP 109/60
[2022-07-01 16:30] VITALS: BP 112/68
[2022-07-01 19:25] VITALS: BP 108/56
[2022-07-01] MEDS ORDERED: RISPERIDONE 1 MG TABLET PO SCH (21:00)
[2022-07-01] MEDS: FUROSEMIDE 20MG VIAL IV SCH (21:24)
[2022-07-01] MEDS: ATORVASTATIN 40 MG TABLET PO SCH (21:26)
[2022-07-01 23:55] VITALS: BP 101/61
[2022-07-02 04:10] LABS: BASOPHILS % (AUTO) 0.2 % (0.0-5.0); EOSINOPHILS % (AUTO) 1.4 % (0.0-8.0); HEMATOCRIT 26.6 % (42-54); LYMPHOCYTES % (AUTO) 14.4 % (21.0-51.0); MEAN CORPUSCULAR HEMOGLOBIN 31.2 pg (27.0-33.0); MEAN CORPUSCULAR HGB CONC 34.2 g/dL (32.0-36.0); MEAN CORPUSCULAR VOLUME 91.1 fL (79-99); MONOCYTES % (AUTO) 13.3 % (3.0-13.0); NEUTROPHILS % (AUTO) 69.2 % (40.0-77.0); NUCLEATED RED BLOOD CELLS 0.2 % (0.0-0.19); PLATELET COUNT (AUTO) 259 K/uL (130-400); RED BLOOD CELL COUNT(AUTO) 2.92 MIL/uL (4.50-6.20); RED CELL DISTRIBUTION WIDTH 13.6 % (11.0-15.5); WHITE BLOOD COUNT (AUTO) 13.5 K/uL (4.8-10.8)
[2022-07-02 04:27] LABS: B-TYPE NATRIURETIC PEPTIDE 816 pg/mL (0-100)
[2022-07-02 04:31] LABS: POTASSIUM 2.9 mmol/L (3.5-5.1)
[2022-07-02] MEDS: POTASSIUM CHLORIDE 20MEQ/100ML 100 ML IV PRN (05:04)
[2022-07-02 05:26] VITALS: BP 123/65
[2022-07-02] MEDS: INSULIN HUMULIN R 100 UNIT/ML 3ML SQ SCH ×3 (06:45→16:30)
[2022-07-02] MEDS: ZOSYN 3.375GM +NS 50ML IV SCH ×2 (06:47→15:38)
[2022-07-02] MEDS: POTASSIUM CHLORIDE 10% ELIXIR 20 MEQ/15 ML UDCUP PO PRN (06:48)
[2022-07-02 07:00] VITALS: BP 104/64
[2022-07-02] MEDS ORDERED: CLOPIDOGREL 75MG TAB PO SCH (09:00)
[2022-07-02] MEDS: RISPERIDONE 0.5 MG TABLET PO SCH (09:00)
[2022-07-02] MEDS: VANCOMYCIN 1.25 GM/250 ML BAG 250 ML IV SCH (10:12)
[2022-07-02] MEDS: ENOXAPARIN SODIUM 30 MG/0.3 ML SQ SCH (10:14)
[2022-07-02] MEDS: FUROSEMIDE 20MG VIAL IV SCH (10:14)
[2022-07-02] MEDS: METOPROLOL TARTRATE 25 MG TAB PO SCH (10:15)
[2022-07-02] MEDS: ASPIRIN 81 MG EC TAB PO SCH (10:15)
[2022-07-02] MEDS: FAMOTIDINE 20MG TAB PO SCH (10:15)
[2022-07-02] MEDS: KCL 20 MEQ ERTAB PO PRN ×2 (10:19→13:21)
[2022-07-02 11:00] VITALS: BP 101/51
[2022-07-02] MEDS ORDERED: POTASSIUM CHLORIDE 10% ELIXIR 20 MEQ/15 ML UDCUP PO SCH (13:30)
[2022-07-02 16:28] VITALS: BP 103/55
== END 2022-07-02 17:08 | DRG 215 ==
LOC: EDH 15:19 → EDHIP 16:46 → 2DH 20:46 → 2CH 06-24 14:59 → 2CV 06-25 10:47 → 2CH 06-27 14:41 → 2AH 06-29 15:41
PROVIDERS: ADMIT Hospitalist; ATTEND Hospitalist
PROC: 02HA3RZ Insertion of Short-term External Heart Assist System into Heart, Percutaneous Approach (ICD-10-PCS; 2022-06-24)
PROC: 5A0221D Assistance with Cardiac Output using Impeller Pump, Continuous (ICD-10-PCS; 2022-06-24)
PROC: 4A023N7 Measurement of Cardiac Sampling and Pressure, Left Heart, Percutaneous Approach (ICD-10-PCS; 2022-06-24)
PROC: B2111ZZ Fluoroscopy of Multiple Coronary Arteries using Low Osmolar Contrast (ICD-10-PCS; 2022-06-24)
PROC: 06BQ4ZZ Excision of Left Saphenous Vein, Percutaneous Endoscopic Approach (ICD-10-PCS; 2022-06-25)
PROC: 0PH000Z Insertion of Rigid Plate Internal Fixation Device into Sternum, Open Approach (ICD-10-PCS; 2022-06-25)
PROC: 30233L1 Transfusion of Nonautologous Fresh Plasma into Peripheral Vein, Percutaneous Approach (ICD-10-PCS; 2022-06-25)
PROC: 30233K1 Transfusion of Nonautologous Frozen Plasma into Peripheral Vein, Percutaneous Approach (ICD-10-PCS; 2022-06-25)
PROC: 30233N1 Transfusion of Nonautologous Red Blood Cells into Peripheral Vein, Percutaneous Approach (ICD-10-PCS; 2022-06-25)
PROC: 5A09357 Assistance with Respiratory Ventilation, Less than 24 Consecutive Hours, Continuous Positive Airway Pressure (ICD-10-PCS; 2022-06-25)
PROC: 02100Z9 Bypass Coronary Artery, One Artery from Left Internal Mammary, Open Approach (ICD-10-PCS; principal; 2022-06-25 09:04)
PROC: 0211093 Bypass Coronary Artery, Two Arteries from Coronary Artery with Autologous Venous Tissue, Open Approach (ICD-10-PCS; 2022-06-25 09:04)
PROC: 02PA3RZ Removal of Short-term External Heart Assist System from Heart, Percutaneous Approach (ICD-10-PCS; 2022-06-27)
PROC: 5A09357 Assistance with Respiratory Ventilation, Less than 24 Consecutive Hours, Continuous Positive Airway Pressure (ICD-10-PCS; 2022-07-01)
PROC: 5A09357 Assistance with Respiratory Ventilation, Less than 24 Consecutive Hours, Continuous Positive Airway Pressure (ICD-10-PCS; 2022-07-02)
DX: I25.10 Atherosclerotic heart disease of native coronary artery without angina pectoris (principal); G93.41 Metabolic encephalopathy; I21.4 Non-ST elevation (NSTEMI) myocardial infarction; J95.1 Acute pulmonary insufficiency following thoracic surgery; J15.9 Unspecified bacterial pneumonia; J96.90 Respiratory failure, unspecified, unspecified whether with hypoxia or hypercapnia; I50.33 Acute on chronic diastolic (congestive) heart failure; D62 Acute posthemorrhagic anemia; Z20.822 Contact with and (suspected) exposure to COVID-19; E11.649 Type 2 diabetes mellitus with hypoglycemia without coma; E78.00 Pure hypercholesterolemia, unspecified; F41.9 Anxiety disorder, unspecified; I11.0 Hypertensive heart disease with heart failure; I25.2 Old myocardial infarction; Z90.49 Acquired absence of other specified parts of digestive tract; Z85.038 Personal history of other malignant neoplasm of large intestine; Z79.899 Other long term (current) drug therapy; Z79.82 Long term (current) use of aspirin; Z51.5 Encounter for palliative care
CPT/HCPCS: 33990; 36415; 36600; 71045; 80048; 80053; 80061; 81001; 82435; 82550; 82803; 82947; 82948; 83036; 83605; 83735; 83874; 83880; 84100; 84132; 84295; 84484; 85018; 85025; 85027; 85347; 85384; 85610; 85730; 86850; 86900; 86901; 86923; 87040; 87071; 87088; 87205; 87635; 87641; 93005; 93306; 93356; 93458; 93880; 94002; 94003; 94150; 94640; 94660; 94664; 97039; 99156; 99157; 99291; A7048; C1894; G0378; J0171; J0282; J0461; J0610; J0690; J1265; J1644; J1650; J1815; J1940; J2001; J2250; J2270; J2405; J2440; J2543; J2704; J2720; J3010; J3475; J3480; J3490; J7030; J7040; J7050; J7070; J7120; P9016; P9034; P9045